=== PATIENT | female | born 1990 | race Caucasian/White ===

== ENCOUNTER 2023-08-05 09:05 | Emergency (ER) | payer OTHER ==
[~2023-08-05] VITALS: Ht 172.7 cm; Wt 120.5 kg
[2023-08-05 09:06] VITALS: BP 118/72; PULSE 86; RESP 18; TEMP 97.7
[2023-08-05] MEDS ORDERED: IBUP-1492 PO (11:04)
[2023-08-05] MEDS ORDERED: PERCT PO (11:06)
[2023-08-05] MEDS: IBUPROFEN 600 MG TABLET PO ONE (11:20)
[2023-08-05] MEDS: OxyCODONE HCL/ACETAMINOPHEN 5-325 MG TABLET PO ONE (11:20)
== END 2023-08-05 11:23 | disposition home or self-care (01) ==
LOC: EMS 09:05
DX: S93.402A Sprain of unspecified ligament of left ankle, initial encounter (principal); Z90.49 Acquired absence of other specified parts of digestive tract; Z98.890 Other specified postprocedural states; X58.XXXA Exposure to other specified factors, initial encounter; Y93.89 Activity, other specified; Y92.89 Other specified places as the place of occurrence of the external cause; Y99.8 Other external cause status
CPT/HCPCS: 29515; 99283